=== PATIENT | female | born 1935 | race Caucasian/White ===

== ENCOUNTER 2021-02-21 12:10 | Inpatient (IN) | payer MEDICARE, OTHER ==
[~2021-02-21] VITALS: Ht 152.4 cm; Wt 65.0 kg
[~2021-02-21 12:10] MED LIST: ALBU6.7H9 IH; ALPR0.255 PO; ASPI81TA31 PO; BUDE10.2 IH; LACT10SO58 PO; LEVO100T PO; METO50TA7 PO; OLAN2.5T3 PO; POLY17PO4 PO; PRAM0.122 PO; SERT50TA PO; SIMV-46 PO; TRAM50TA PO; ZOLP10TA2 PO
[2021-02-21 12:45] VITALS: BP 151/63
[2021-02-21] MEDS ORDERED: METO-357 PO (13:08)
[2021-02-21] MEDS ORDERED: LEVO100T10 PO (13:08)
[2021-02-21] MEDS ORDERED: CARV25TA2 PO (13:08)
[2021-02-21] MEDS ORDERED: CLOP100P ALT NOSTRI (13:08)
[2021-02-21] MEDS ORDERED: CLON0.5T4 PO (13:08)
[2021-02-21] MEDS ORDERED: TRAM50TA2 PO (13:08)
[2021-02-21] MEDS ORDERED: DICL100G16 TP (13:08)
[2021-02-21] MEDS ORDERED: EMPA1TAB7 PO (13:08)
[2021-02-21] MEDS ORDERED: LIPA1CAP15 PO (13:08)
[2021-02-21] MEDS ORDERED: CLOP75TA33 PO (13:08)
[2021-02-21] MEDS ORDERED: FENO48TA6 PO (13:08)
[2021-02-21] MEDS ORDERED: SERT50TA PO (13:08)
[2021-02-21] MEDS ORDERED: ICOS1CAP2 (13:08)
[2021-02-21] MEDS ORDERED: FLUT1DIS28 IH (13:08)
[2021-02-21] MEDS ORDERED: QUET25TA PO (13:08)
[2021-02-21] MEDS ORDERED: TELM80TA9 PO (13:08)
[2021-02-21] MEDS: OXYCODONE HCL 5 MG TABLET PO PRN (14:11)
[2021-02-21 16:00] VITALS: BP 153/60
[2021-02-21] MEDS ORDERED: ALPRAZOLAM 0.25 MG TABLET PO PRN ×2 (19:00→20:00)
[2021-02-21] MEDS ORDERED: CLONAZEPAM 0.5 MG TABLET PO PRN (19:00)
[2021-02-21 20:00] VITALS: BP 131/46
[2021-02-21] MEDS ORDERED: ALBUTEROL SULFATE 2.5 MG/3 ML NEBU NEB PRN (20:15)
[2021-02-22] MEDS: OXYCODONE HCL 5 MG TABLET PO PRN ×2 (03:19→22:10)
[2021-02-22 04:00] VITALS: BP 152/64
--- NOTE | 2021-02-22 05:09 | NUR ---
Pt slept intermittently throughout the night. C/o pain in flank that is alleviated with Oxy. Denies SOB or chest pain. Pt very pleasant and able to make needs known. Call light within reach. Bed is locked and in lowest position, safety and comfort provided throughout shift. No other issues or concerns at this time, will endorse to day shift.
[2021-02-22] MEDS: LEVOTHYROXINE SODIUM 100 MCG TABLET PO SCH (06:05)
[2021-02-22 06:30] LABS: HEMATOCRIT 33.4 % (31.2-41.9); MEAN CORPUSCULAR HEMOGLOBIN 33.4 uug (24.7-32.8); MEAN CORPUSCULAR VOLUME 96.9 fL (75.5-95.3); PLATELET COUNT (AUTO) 171 K/uL (179-408)
[2021-02-22 06:35] LABS: BILIRUBIN,TOTAL 0.3 mg/dL (0.2-1.0); CREATININE 0.9 mg/dL (0.6-1.3); MAGNESIUM 1.3 mg/dL (1.8-2.4); PHOSPHOROUS 2.9 mg/dL (2.5-4.9); POTASSIUM 3.9 mmol/L (3.5-5.1); TOTAL PROTEIN, SERUM 6.2 g/dL (6.4-8.2)
[2021-02-22 08:00] VITALS: BP 151/65
[2021-02-22] MEDS ORDERED: Medication Not On Formulary EA (Lipase/Protease/Amylase (Creon Dr 36,000 Units Capsule) PO SCH (08:00)
[2021-02-22] MEDS: CLOPIDOGREL 75 MG TABLET PO SCH (08:41)
[2021-02-22] MEDS: CARVEDILOL 25 MG TABLET PO SCH ×2 (08:41→16:45)
[2021-02-22] MEDS: ASPIRIN 81 MG TAB.CHEW PO SCH (08:41)
[2021-02-22] MEDS: VALSARTAN 160 MG TABLET PO SCH (08:41)
[2021-02-22] MEDS: LIPASE/PROTEASE/AMYLASE 4200 UNITS CAPSULE.DR PO SCH ×3 (08:41→16:45)
[2021-02-22] MEDS: SERTRALINE HCL 100 MG TABLET PO SCH (08:42)
[2021-02-22] MEDS: FENOFIBRATE NANOCRYSTALLIZED 48 MG TABLET PO SCH (08:42)
[2021-02-22] MEDS ORDERED: SERTRALINE HCL 50 MG TABLET PO SCH (09:00)
[2021-02-22] MEDS ORDERED: METOPROLOL SUCCINATE XL 50 MG TAB.SR.24H PO SCH (09:00)
[2021-02-22] MEDS ORDERED: FLUTICASONE/SALMETEROL 250/50 INHALER IH SCH (09:00)
[2021-02-22] MEDS ORDERED: FLUTICASONE/VILANTEROL 1 EACH BLST.W.DEV INH SCH (09:00)
[2021-02-22] MEDS ORDERED: METFORMIN HCL PO SCH (09:00)
[2021-02-22] MEDS ORDERED: EMPAGLIFLOZIN PO SCH (09:00)
[2021-02-22] MEDS ORDERED: QUETIAPINE FUMARATE 25 MG TABLET PO SCH (09:00)
[2021-02-22] MEDS ORDERED: ALBUTEROL SULFATE 8 GM HFA.AER.AD IH SCH (09:00)
[2021-02-22] MEDS ORDERED: MAGNESIUM OXIDE 400 MG TABLET PO ONE ×2 (12:00→17:00)
[2021-02-22 14:09] VITALS: BP 123/53
[2021-02-22 20:23] VITALS: BP 179/71
[2021-02-22] MEDS: QUETIAPINE FUMARATE 25 MG TABLET PO SCH (20:51)
[2021-02-22] MEDS ORDERED: CLONIDINE HCL 0.1 MG TABLET PO PRN (21:15)
[2021-02-22] MEDS: ACETAMINOPHEN 325 MG TABLET PO PRN (21:31)
--- NOTE | 2021-02-22 21:35 | NUR ---
Patient awake in bed, c/o headache. Bp elevated. Called out to SARAH Travis for further orders. Received order for Clonidine 0.1mg po prn for sbp over 160. Patient given medication. Will continue to monitor and assess.
--- NOTE | 2021-02-22 23:30 | NUR ---
Patient asleep in bed. Rechecked bp 155/55. No c/o pain or discomfort. All needs attended, will continue to monitor and assess.
[2021-02-23] VITALS: BP 151/55
[2021-02-23 04:00] VITALS: BP 159/59
[2021-02-23] MEDS: LEVOTHYROXINE SODIUM 100 MCG TABLET PO SCH (06:03)
[2021-02-23 07:30] VITALS: BP 158/50
--- NOTE | 2021-02-23 07:30 | NUR ---
received change of shift report. pt resting in bed, a/o x3, pt has viridiana on left side of head open to air. pt on room air, no signs of distress, no reports of pain at this time. pt uses FWW, pt continent. bed low and locked, call light within reach, safety precautions in place, will continue to monitor.
[2021-02-23] MEDS: SERTRALINE HCL 100 MG TABLET PO SCH (08:35)
[2021-02-23] MEDS: ASPIRIN 81 MG TAB.CHEW PO SCH (08:35)
[2021-02-23] MEDS: CLOPIDOGREL 75 MG TABLET PO SCH (08:35)
[2021-02-23] MEDS: FENOFIBRATE NANOCRYSTALLIZED 48 MG TABLET PO SCH (08:36)
[2021-02-23] MEDS: VALSARTAN 160 MG TABLET PO SCH (08:36)
[2021-02-23] MEDS: CARVEDILOL 25 MG TABLET PO SCH ×2 (08:36→17:46)
[2021-02-23] MEDS: LIPASE/PROTEASE/AMYLASE 4200 UNITS CAPSULE.DR PO SCH ×3 (08:38→17:46)
--- NOTE | 2021-02-23 12:35 | NUR ---
Spoke with daughter about bringing her home medications to us. She stated she would bring them on Thursday and would explain to the mom that breo is a substitute for advair (which she takes at home). pharmacy notified
[2021-02-23] MEDS: FLUTICASONE/VILANTEROL 1 EACH BLST.W.DEV INH SCH ×2 (13:51→14:11)
[2021-02-23 16:00] VITALS: BP 145/66
--- NOTE | 2021-02-23 18:18 | NUR ---
pt resting in bed, a/ox3, pt on room air, no signs of distress , no reports of pain at this time. spoke with family, family notified to bring in home meds, ambulatory with FWW. will endorse to oncoming nurse.
[2021-02-23] MEDS: QUETIAPINE FUMARATE 25 MG TABLET PO SCH (20:00)
[2021-02-23 20:33] VITALS: BP 109/48
--- NOTE | 2021-02-23 20:47 | NUR ---
Received patient awake in bed. a/o x3. Tajik speaking but able to make needs known. Denies any pain or discomfort. No resp. distress noted. Vs wnl. Bed alarm on. Call light in reach. All needs attended. Will continue to monitor and assess.
[2021-02-24] MEDS: OXYCODONE HCL 5 MG TABLET PO PRN (02:26)
[2021-02-24] MEDS: ACETAMINOPHEN 325 MG TABLET PO PRN ×2 (02:34→20:24)
[2021-02-24 04:31] VITALS: BP 152/50
[2021-02-24] MEDS: LEVOTHYROXINE SODIUM 100 MCG TABLET PO SCH (06:24)
--- NOTE | 2021-02-24 06:47 | NUR ---
PATIENT AWAKE IN BED. SLEPT WELL THROUGHOUT THE NIGHT, DENIES ANY PAIN AT THIS TIME. BED ALARM ON. CALL LIGHT IN REACH. WILL CONTINUE TO MONITOR AND ASSESS.
--- NOTE | 2021-02-24 07:30 | NUR ---
received change of shift report. pt in bed resting, a/ox4 Jordanian speaking, understand some Belizean. pt on room air, no signs fo distress, no reports of pain at this time. pt ambulatory via FWW. pt continent with BRP. pt cooperative, bed low and locked, call light within reach, will continue with plan of care.
[2021-02-24] MEDS: ASPIRIN 81 MG TAB.CHEW PO SCH (08:54)
[2021-02-24] MEDS: CLOPIDOGREL 75 MG TABLET PO SCH (08:54)
[2021-02-24] MEDS: LIPASE/PROTEASE/AMYLASE 4200 UNITS CAPSULE.DR PO SCH ×3 (08:55→17:19)
[2021-02-24] MEDS: VALSARTAN 160 MG TABLET PO SCH (08:55)
[2021-02-24] MEDS: CARVEDILOL 25 MG TABLET PO SCH ×2 (08:55→17:20)
[2021-02-24] MEDS: SERTRALINE HCL 100 MG TABLET PO SCH (08:56)
[2021-02-24] MEDS: FENOFIBRATE NANOCRYSTALLIZED 48 MG TABLET PO SCH (08:56)
[2021-02-24] MEDS: FLUTICASONE/VILANTEROL 1 EACH BLST.W.DEV INH SCH (08:57)
[2021-02-24 09:54] VITALS: BP 147/59
--- NOTE | 2021-02-24 11:05 | NUR ---
son in law at bedside, spoke with him in regard to bringing the pt's home medication, son in law stated he will try to bring them in today.
--- NOTE | 2021-02-24 11:20 | NUR ---
son in law (POA), stated that he would like for the pt to receive the COVID-19 vaccine. he will also be bringing a copy of the POA paperwork.
[2021-02-24 15:52] VITALS: BP 132/54
--- NOTE | 2021-02-24 16:07 | NUR ---
INDIVIDUALIZED PLAN OF CARE
--- NOTE | 2021-02-24 18:35 | NUR ---
pt in bed resting, a/ox4, on room air, no signs of distress, no reports of pain at this time. pt improving with mobility per physical therapy. will endorse to oncoming nurse.
--- NOTE | 2021-02-24 19:15 | NUR ---
Received pt in bed, awake and verbally responsive, able to make needs known, pleasant. Denies any pain or discomfort. No signs of acute distress. Bed locked and in low position, bed alarm on. side rails up. will continue to monitor.
[2021-02-24] MEDS: QUETIAPINE FUMARATE 25 MG TABLET PO SCH (20:24)
[2021-02-24 20:26] VITALS: BP 125/47
[2021-02-25 04:37] VITALS: BP 129/48
[2021-02-25] MEDS: LEVOTHYROXINE SODIUM 100 MCG TABLET PO SCH (06:00)
--- NOTE | 2021-02-25 06:24 | NUR ---
Pt slept through the night. No s/s of acute distress. Tolerated medications well. Assisted to restroom as needed. Safety measures in place, call light within reach. All needs attended to and met.
[2021-02-25 07:30] VITALS: BP 122/53
[2021-02-25] MEDS: CARVEDILOL 25 MG TABLET PO SCH ×2 (08:48→17:42)
[2021-02-25] MEDS: CLOPIDOGREL 75 MG TABLET PO SCH (08:48)
[2021-02-25] MEDS: ASPIRIN 81 MG TAB.CHEW PO SCH (08:48)
[2021-02-25] MEDS: LIPASE/PROTEASE/AMYLASE 4200 UNITS CAPSULE.DR PO SCH ×3 (08:49→17:41)
[2021-02-25] MEDS: VALSARTAN 160 MG TABLET PO SCH (08:49)
[2021-02-25] MEDS: FENOFIBRATE NANOCRYSTALLIZED 48 MG TABLET PO SCH (08:49)
[2021-02-25] MEDS: SERTRALINE HCL 100 MG TABLET PO SCH (08:49)
[2021-02-25] MEDS: FLUTICASONE/VILANTEROL 1 EACH BLST.W.DEV INH SCH (08:54)
[2021-02-25 16:00] VITALS: BP 128/44
[2021-02-25 20:40] VITALS: BP 103/40
[2021-02-25] MEDS: ACETAMINOPHEN 325 MG TABLET PO PRN (21:12)
[2021-02-25] MEDS: QUETIAPINE FUMARATE 25 MG TABLET PO SCH (21:13)
[2021-02-26 04:37] VITALS: BP 123/44
[2021-02-26] MEDS: LEVOTHYROXINE SODIUM 100 MCG TABLET PO SCH (06:07)
--- NOTE | 2021-02-26 06:10 | NUR ---
Patient comfortable in bed stable v/s no signs of distress. Patient slept w/o complaint entire night and remained free of pain. Bed in low position and call light within reach.
[2021-02-26 06:24] LABS: HEMATOCRIT 36.2 % (31.2-41.9); MEAN CORPUSCULAR HEMOGLOBIN 32.5 uug (24.7-32.8); MEAN CORPUSCULAR VOLUME 97.7 fL (75.5-95.3); PLATELET COUNT (AUTO) 177 K/uL (179-408)
[2021-02-26 06:36] LABS: CREATININE 1.2 mg/dL (0.6-1.3); POTASSIUM 3.5 mmol/L (3.5-5.1)
[2021-02-26 07:30] VITALS: BP 106/42
--- NOTE | 2021-02-26 08:00 | NUR ---
RECEIVED PATIENT IN BED AWAKE ALERT AND AWARE WITH LANGUAGE BARRIER BUT SPEAKS ENOUGH [place] TO BE ABLE TO MAKE NEEDS KNOWN DENIES PAIN OR DISCOMFORTS AT THIS TIME ABLE TO AMBULATE TO AND FROM THE BATHROOM WITH ASSIST WITH THE FRONT WHEEL WALKER SHE IS CONTINENT AT THIS TIME PATIENT INSTRUCTED TO CALL FOR ASSISTANCE WHEN SHE HAS A NEED TO GET OUT OF BED TO PREVENT FALL CHECKED FREQUENTLY ON ROUNDS WILL CONTINUE TO OBSERVE.
[2021-02-26] MEDS: CLOPIDOGREL 75 MG TABLET PO SCH (08:25)
[2021-02-26] MEDS: SERTRALINE HCL 100 MG TABLET PO SCH (08:25)
[2021-02-26] MEDS: ASPIRIN 81 MG TAB.CHEW PO SCH (08:25)
[2021-02-26] MEDS: FLUTICASONE/VILANTEROL 1 EACH BLST.W.DEV INH SCH (08:26)
[2021-02-26] MEDS: LIPASE/PROTEASE/AMYLASE 4200 UNITS CAPSULE.DR PO SCH ×3 (08:26→17:02)
[2021-02-26] MEDS: FENOFIBRATE NANOCRYSTALLIZED 48 MG TABLET PO SCH (08:27)
[2021-02-26] MEDS: VALSARTAN 160 MG TABLET PO SCH (08:36)
[2021-02-26] MEDS: CARVEDILOL 25 MG TABLET PO SCH ×2 (08:36→17:02)
[2021-02-26 15:57] VITALS: BP 134/47
[2021-02-26 20:00] VITALS: BP 141/35
[2021-02-26] MEDS: QUETIAPINE FUMARATE 25 MG TABLET PO SCH (20:22)
--- NOTE | 2021-02-27 02:01 | NUR ---
received patient sleeping , arousable to name and light touch , denies distress
[2021-02-27 04:00] VITALS: BP 130/25
--- NOTE | 2021-02-27 06:00 | NUR ---
awake on room air , denies distress, viridiana intact on the head
[2021-02-27] MEDS: LEVOTHYROXINE SODIUM 100 MCG TABLET PO SCH (06:25)
[2021-02-27 07:53] VITALS: BP 139/43
[2021-02-27] MEDS: CLOPIDOGREL 75 MG TABLET PO SCH (08:32)
[2021-02-27] MEDS: ASPIRIN 81 MG TAB.CHEW PO SCH (08:32)
[2021-02-27] MEDS: SERTRALINE HCL 100 MG TABLET PO SCH (08:32)
[2021-02-27] MEDS: CARVEDILOL 25 MG TABLET PO SCH ×2 (08:32→17:39)
[2021-02-27] MEDS: LIPASE/PROTEASE/AMYLASE 4200 UNITS CAPSULE.DR PO SCH ×3 (08:33→17:34)
[2021-02-27] MEDS: VALSARTAN 160 MG TABLET PO SCH (08:33)
[2021-02-27] MEDS: FLUTICASONE/VILANTEROL 1 EACH BLST.W.DEV INH SCH (08:33)
[2021-02-27] MEDS: FENOFIBRATE NANOCRYSTALLIZED 48 MG TABLET PO SCH (08:34)
--- NOTE | 2021-02-27 09:00 | NUR ---
AWAKE ALERT IN ROOM REMAINS ON ROOM AIR WITH NO SHORTNESS OF BREATH AT THIS TIME ASSISTED WITH AMBULATING TO THE BATHROOM WITH THE FRONT WHEEL WALKER DENIES PAIN OR DISCOMFORTS LYNETTE ON HEAD IS INTACT WITH NO DRAINAGE CALL LIGHTS AND PERSONAL BELONGINGS ARE WITHIN EASY REACH AT THIS TIME PATIENT INSTRUCTED TO CALL FOR HELP WHEN EVER SHE NEEDS ONE TO PREVENT FALL NOT IN DISTRESS WILL CONTINUE TO OBSERVE.
--- NOTE | 2021-02-27 11:59 | NUR ---
CALLED AND SPOKE WITH PATIENTS SON IN LAW CAITIE RE BRINGING IN PATIENTS OWN MEDICATION NAMED SYNJARDLorena REQUESTED BY THE [facility] CAITIE STATED UNABLE TO FIND MEDICATION AT THIS TIME JAMAL NOTIFIED.
--- NOTE | 2021-02-27 13:34 | NUR ---
CONTINUE WITH PT/OT/SPEECH THERAPIES ORDERED AND TOLERATING WELL.
--- NOTE | 2021-02-27 13:48 | NUR ---
INTERDISCIPLINARY TEAM CONFERENCE
--- NOTE | 2021-02-27 14:13 | NUR ---
PER THE PHYSICAL THERAPIST WHILE HAVING THERAPY PATIENT HAD A BOWEL MOVEMENT AND AFTER THE BM PATIENT FELT DIZZY AND BLOOD PRESSURE AT THAT TIME IS 91/38 AND PATIENT ASSISTED SITTING ON THE BED BLOOD PRESSURE RECHECKED AND ITS 99/42 THEN WHILE LAYING HER BLOOD PRESSURE IS 96/43 PATIENT STATED FELT BETTER LOWER EXT ELEVATED WILL CONTINUE TO OBSERVE PATIENT.
[2021-02-27 15:10] VITALS: BP 102/34
--- NOTE | 2021-02-27 15:10 | NUR ---
BLOOD PRESSURE AT THIS TIME IS 102/34 PATIENT IS ASSYMPTOMATIC AT THIS TIME MADE COMFORTABLE AND WILL CONTINUE TO OBSERVE.
[2021-02-27] MEDS: ACETAMINOPHEN 325 MG TABLET PO PRN (16:39)
--- NOTE | 2021-02-27 17:39 | NUR ---
BLOOD PRESSURE RECHECKED AND ITS 148/53 HR IS 66 COREG GIVEN ORDERED PATIENT IS EATING DINNER ALERT ORIENTED WITH NO DISTRESS AT THIS TIME
[2021-02-27 20:00] VITALS: BP 118/50
[2021-02-27] MEDS: QUETIAPINE FUMARATE 25 MG TABLET PO SCH (20:28)
--- NOTE | 2021-02-27 20:55 | NUR ---
awake,[id number] complaints of pain . she just wanted to sleep.made comfortable.hs care rendered.
[2021-02-28 04:00] VITALS: BP 123/50
[2021-02-28] MEDS: LEVOTHYROXINE SODIUM 100 MCG TABLET PO SCH (06:14)
--- NOTE | 2021-02-28 07:24 | NUR ---
SLEPT MOST OF THE NITE, NO COMPLAINTS VITAL SIGNS STABLE.RESTING COMFORTABLY.
[2021-02-28 07:38] VITALS: BP 121/46
[2021-02-28] MEDS: ASPIRIN 81 MG TAB.CHEW PO SCH (08:13)
[2021-02-28] MEDS: FLUTICASONE/VILANTEROL 1 EACH BLST.W.DEV INH SCH (08:13)
[2021-02-28] MEDS: LIPASE/PROTEASE/AMYLASE 4200 UNITS CAPSULE.DR PO SCH ×3 (08:13→17:16)
[2021-02-28] MEDS: VALSARTAN 160 MG TABLET PO SCH ×2 (08:14→09:00)
[2021-02-28] MEDS: SERTRALINE HCL 100 MG TABLET PO SCH (08:14)
[2021-02-28] MEDS: CLOPIDOGREL 75 MG TABLET PO SCH (08:14)
[2021-02-28] MEDS: FENOFIBRATE NANOCRYSTALLIZED 48 MG TABLET PO SCH (08:14)
[2021-02-28] MEDS: CARVEDILOL 25 MG TABLET PO SCH ×2 (08:15→17:16)
[2021-02-28] MEDS ORDERED: IV NORMAL SALINE 500 ML IV ONE (11:45)
[2021-02-28 15:39] VITALS: BP 142/55
--- NOTE | 2021-02-28 16:52 | NUR ---
Per PT patient systolic blood pressure dropped to 80s and patient stated she felt dizzy as well, MD made aware, bolus IV hydration administered as ordered. effective.
[2021-02-28 17:10] VITALS: BP_SYST 138; BP_SYST 150; BP_SYST 151; BP_DIAS 37; BP_DIAS 45; BP_DIAS 49
[2021-02-28] MEDS: TRAMADOL HCL 50 MG TABLET PO PRN (17:16)
--- NOTE | 2021-02-28 19:13 | NUR ---
left message to son regarding patient home medication to call back, no response
[2021-02-28 20:00] VITALS: BP 105/53
[2021-02-28] MEDS: QUETIAPINE FUMARATE 25 MG TABLET PO SCH (20:49)
[2021-03-01 04:00] VITALS: BP 134/55
--- NOTE | 2021-03-01 05:50 | NUR ---
Shift End Report: VS stable. No complaint presented all night. All needs attended and met. No significant event reported. Continue current plan of care.
[2021-03-01] MEDS: LEVOTHYROXINE SODIUM 100 MCG TABLET PO SCH (06:07)
[2021-03-01 07:57] VITALS: BP 137/48
[2021-03-01] MEDS: LIPASE/PROTEASE/AMYLASE 4200 UNITS CAPSULE.DR PO SCH ×3 (08:12→17:24)
[2021-03-01] MEDS: ASPIRIN 81 MG TAB.CHEW PO SCH (08:15)
[2021-03-01] MEDS: VALSARTAN 160 MG TABLET PO SCH (08:15)
[2021-03-01] MEDS: SERTRALINE HCL 100 MG TABLET PO SCH (08:15)
[2021-03-01] MEDS: CLOPIDOGREL 75 MG TABLET PO SCH (08:15)
[2021-03-01] MEDS: CARVEDILOL 25 MG TABLET PO SCH ×2 (08:16→17:00)
[2021-03-01] MEDS: FLUTICASONE/VILANTEROL 1 EACH BLST.W.DEV INH SCH (08:16)
[2021-03-01] MEDS: FENOFIBRATE NANOCRYSTALLIZED 48 MG TABLET PO SCH (08:23)
[2021-03-01 16:00] VITALS: BP 119/38
[2021-03-01 20:00] VITALS: BP 154/62
[2021-03-01] MEDS: QUETIAPINE FUMARATE 25 MG TABLET PO SCH (20:22)
[2021-03-01] MEDS: OXYCODONE HCL 5 MG TABLET PO PRN (20:28)
--- NOTE | 2021-03-01 20:30 | NUR ---
RECEIVED PATIENT AWAKE IN BED. A/O X3. BULGARIAN SPEAKING BUT ABLE TO MAKE NEEDS KNOWN. ASSISTED PATIENT TO BATHROOM VIA FWW AND BACK TO BED. PATIENT C/O PAIN IN LOWER BACK AND PAIN WHEN SHE COUGHS. PATIENT GIVEN OXYIR 5MG PO AND TYLENOL 650MG PO PRN. VS WNL. NO RESP. DISTRESS NOTED. BED ALARM ON. CALL LIGHT IN REACH. ALL NEEDS ATTENDED, WILL CONTINUE TO MONITOR AND ASSESS.
--- NOTE | 2021-03-01 21:30 | NUR ---
PATIENT ASLEEP IN BED. NO RESP. DISTRESS NOTED. NO S/S OF ANY PAIN OR DISCOMFORT. BED ALARM ON. CALL LIGHT IN REACH. ALL NEEDS ATTENDED. WILL CONTINUE TO MONITOR AND ASSESS.
[2021-03-02 04:00] VITALS: BP 140/54
[2021-03-02] MEDS: LEVOTHYROXINE SODIUM 100 MCG TABLET PO SCH (06:11)
--- NOTE | 2021-03-02 06:39 | NUR ---
PATIENT AWAKE IN BED. SLEPT WELL. DENIES PAIN AT THIS TIME. BED ALARM ON. CALL LIGHT IN REACH. ALL NEEDS ATTENDED, WILL CONTINUE TO MONITOR AND ASSESS.
[2021-03-02 08:00] VITALS: BP 145/46
[2021-03-02] MEDS: LIPASE/PROTEASE/AMYLASE 4200 UNITS CAPSULE.DR PO SCH ×3 (08:35→17:02)
[2021-03-02] MEDS: VALSARTAN 160 MG TABLET PO SCH (08:36)
[2021-03-02] MEDS: ASPIRIN 81 MG TAB.CHEW PO SCH (08:36)
[2021-03-02] MEDS: SERTRALINE HCL 100 MG TABLET PO SCH (08:36)
[2021-03-02] MEDS: TRAMADOL HCL 50 MG TABLET PO PRN ×2 (08:36→17:11)
[2021-03-02] MEDS: CARVEDILOL 25 MG TABLET PO SCH ×2 (08:37→17:00)
[2021-03-02] MEDS: CLOPIDOGREL 75 MG TABLET PO SCH (08:37)
[2021-03-02] MEDS: FENOFIBRATE NANOCRYSTALLIZED 48 MG TABLET PO SCH (08:42)
[2021-03-02] MEDS: FLUTICASONE/VILANTEROL 1 EACH BLST.W.DEV INH SCH (10:59)
[2021-03-02 16:56] VITALS: BP 123/45
[2021-03-02] MEDS: ACETAMINOPHEN 325 MG TABLET PO PRN (17:11)
[2021-03-02 20:00] VITALS: BP 134/44
[2021-03-02] MEDS: QUETIAPINE FUMARATE 25 MG TABLET PO SCH (20:00)
--- NOTE | 2021-03-02 20:57 | NUR ---
Received pt resting in bed and reading the newspaper. AAO x3, Tristanian speaking, able to make needs known. No acute distress noted. Denies pain/ discomfort. Due med given as ordered. Safety measures maintained. Bed alarm on. Encouraged pt to use call light. Will continue to monitor.
[2021-03-03 04:00] VITALS: BP 132/41
[2021-03-03] MEDS: LEVOTHYROXINE SODIUM 100 MCG TABLET PO SCH (06:03)
[2021-03-03 08:00] VITALS: BP 133/49
[2021-03-03] MEDS: LIDOCAINE 5% PATCH TD SCH (09:16)
[2021-03-03] MEDS: VALSARTAN 160 MG TABLET PO SCH (09:17)
[2021-03-03] MEDS: CARVEDILOL 25 MG TABLET PO SCH ×2 (09:17→17:25)
[2021-03-03] MEDS: CLOPIDOGREL 75 MG TABLET PO SCH (09:17)
[2021-03-03] MEDS: ASPIRIN 81 MG TAB.CHEW PO SCH (09:17)
[2021-03-03] MEDS: FENOFIBRATE NANOCRYSTALLIZED 48 MG TABLET PO SCH (09:18)
[2021-03-03] MEDS: SERTRALINE HCL 100 MG TABLET PO SCH (09:18)
[2021-03-03] MEDS: LIPASE/PROTEASE/AMYLASE 4200 UNITS CAPSULE.DR PO SCH ×3 (09:18→17:18)
[2021-03-03] MEDS: FLUTICASONE/VILANTEROL 1 EACH BLST.W.DEV INH SCH (09:21)
--- NOTE | 2021-03-03 14:27 | NUR ---
Patient in bed, alert , Lao speaking, cooperative upon assessment. Denies of any pain, call light within reach. Bed alam functioning well. All due meds given per MD order . Patient on room air saturating at 95% Assisted to the bathroom with a walker and wearing her back brace . Will continue to monitor.
[2021-03-03 15:59] VITALS: BP 129/36
[2021-03-03 20:13] VITALS: BP 105/43
[2021-03-03] MEDS: QUETIAPINE FUMARATE 25 MG TABLET PO SCH (20:13)
--- NOTE | 2021-03-03 20:27 | NUR ---
Received pt with bed alarm ongoing, getting out of bed without calling for assistance. Assisted pt to the bathroom using walker, unsteady gait. AAO x3, Maldivian speaking, able to make needs known. No acute distress noted. Denies pain/ discomfort. Due med given as ordered. Pt non compliant with the use of call light, Risks and benefits explained. Pt again got out of bed without using call light. Encouraged pt multiple times to use call light. Bed alarm on. Safety measures maintained. Call light and personal items within reach. Will continue to monitor.
[2021-03-04 04:50] VITALS: BP 106/35
[2021-03-04] MEDS: LEVOTHYROXINE SODIUM 100 MCG TABLET PO SCH (06:00)
[2021-03-04 08:00] VITALS: BP 121/46
[2021-03-04 08:06] VITALS: BP 146/66
[2021-03-04] MEDS: CLOPIDOGREL 75 MG TABLET PO SCH (09:06)
[2021-03-04] MEDS: LIPASE/PROTEASE/AMYLASE 4200 UNITS CAPSULE.DR PO SCH ×3 (09:06→17:28)
[2021-03-04] MEDS: ASPIRIN 81 MG TAB.CHEW PO SCH (09:06)
[2021-03-04] MEDS: SERTRALINE HCL 100 MG TABLET PO SCH (09:06)
[2021-03-04] MEDS: FENOFIBRATE NANOCRYSTALLIZED 48 MG TABLET PO SCH (09:07)
[2021-03-04] MEDS: VALSARTAN 160 MG TABLET PO SCH (09:07)
[2021-03-04] MEDS: CARVEDILOL 25 MG TABLET PO SCH ×2 (09:08→17:00)
[2021-03-04] MEDS: LIDOCAINE 5% PATCH TD SCH (09:08)
[2021-03-04] MEDS: FLUTICASONE/VILANTEROL 1 EACH BLST.W.DEV INH SCH (09:10)
--- NOTE | 2021-03-04 09:15 | NUR ---
AWAKE ALERT AWARE SITTING UP ON THE CHAIR EATING HER BREAKFAST COMPLIANT WITH MEDICATIONS AND CARE WAS SEEN BY THE PHYSICAL THERAPIST FOR THERAPEUTIC EXERCISES AND PER THE THERAPIST HER ENDURANCE WAS BETTER.CALL LIGHTS AND PERSONAL BELONGINGS ARE WITHIN EASY REACH WILL CONTINUE TO OBSERVE AND PROVIDE COMFORT
[2021-03-04 15:03] LABS: CARBON DIOXIDE 23 mmol/L (21-32); CHLORIDE 107 mmol/L (98-107); CREATININE 1.5 mg/dL (0.6-1.3); GLUCOSE 142 mg/dL (74-106); POTASSIUM 4.7 mmol/L (3.5-5.1); UREA NITROGEN, BLOOD 32 mg/dL (7-18)
[2021-03-04] MEDS: TRAMADOL HCL 50 MG TABLET PO PRN (15:51)
--- NOTE | 2021-03-04 15:52 | NUR ---
C/O GERERALISED PAIN MEDICATED WITH ULTRAM ORDERED MADE COMFORTABLE WILL OBSERVE.
[2021-03-04 16:37] VITALS: BP 105/40
--- NOTE | 2021-03-04 16:40 | NUR ---
CALLED AND SPOKE WITH DR BLACK AND NOTIFIED HIM OF MY CONVERSATION WITH THE PATIEN WANTED ME TO CHECK PATIENT ORTHOSTATIC BLOOD PRESSURE AND CALL HIM BACK SEE LOG FORM FOR THE RESULTS.
--- NOTE | 2021-03-04 16:45 | NUR ---
CALL RECEIVED FROM PATIENTS DAUGHTER STATED THAT PATIENT HAD CALLED HER TO REPORT THAT HER BLOOD WAS TAKEN AND SHE DOES NOT WANT BLOOD DRAW OFTEN STATED THAT IT MAKES HER FEEL DIZZY EXPLAINED TO PATIENTS DAUGHTER THAT THE LAST TIME BLOOD WAS CHECKED WAS ON THE February AND THAT SHE HAD COMPLAINED OF PAIN EARLIER WHICH I GAVE HER PAIN MEDICATIONS BUT PATIENTS DAUGHTER WAS VERY ABRUPT STATED THAT WE DO NOT CARE FOR THE ELDERLY WOMAN COMPARED THE PATIENT TO THIS WRITERS MOTHER STATED WHAT WOULD I DO IF THIS WAS MY MOTHER STATED WANTS THE DOCTOR TO CALL HER AND THEN HUNG UP WHILE I WAS STILL ATTEMPTING TO EXPLAIN TO HER WHAT WAS GOING ON. Addendum: 03/04/21 at 1811 by LARRY WHITNEY RN CALL WAS RECEIVED FROM PATIENTS DAUGHTER AT [id number]
--- NOTE | 2021-03-04 17:00 | NUR ---
CALL RECEIVED FROM DR BLACK STATED TO START PATIENT IN IVF BASDE ON HER BUN/CR AND FEELING OF DIZZINESS THINKS SHE MIGHT BE DEHYDRATED AND NOTED.
[2021-03-04] MEDS ORDERED: IV NORMAL SALINE 500 ML IV ONE (17:15)
--- NOTE | 2021-03-04 17:30 | NUR ---
HEPLOCK INSERTED TO HER RIGHT WRIST WITH ONE ATTEMPT GAUGE 20 AND NS BOLUS STARTED ORDERED WILL OBSERVE.
[2021-03-04 18:17] VITALS: BP_SYST 109; BP_SYST 92; BP_SYST 98; BP_DIAS 46; BP_DIAS 48; BP_DIAS 55
[2021-03-04] MEDS: IV NS 1000 ML 1,000 ML IV PRN (18:49)
[2021-03-04 20:00] VITALS: BP 118/38
[2021-03-04] MEDS: QUETIAPINE FUMARATE 25 MG TABLET PO SCH (20:24)
[2021-03-05 04:00] VITALS: BP 116/36
[2021-03-05] MEDS: LEVOTHYROXINE SODIUM 100 MCG TABLET PO SCH (06:15)
[2021-03-05] MEDS: IV NS 1000 ML 1,000 ML IV PRN ×2 (06:22→19:45)
--- NOTE | 2021-03-05 06:28 | NUR ---
Shift End Report: Vs stable. Slept good. Continuos IVF as ordered for hydration, No s/s of IV site infiltration. All needs attended. No complaint presented all night. No significant event reported. Continue current rehab plan of care.
--- NOTE | 2021-03-05 07:26 | NUR ---
RECEIVED PATIENT IN BED WITH EYES CLOSED EASILY AROUSABLE ON ROUNDS ON ROOM AIR WITH NO S/S OF SHORTNESS OF BREATH AT THIS TIME REMAIN ON IVF ORDERED WITH NO S/S OF INFILTERATION ON SITE CALL LIGHTS AND PERSONAL BELONGINGS ARE WITHIN EASY REACH MADE COMFORTABLE WILL CONTINUE TO OBSERVE.
[2021-03-05 07:51] VITALS: BP 115/45
[2021-03-05] MEDS: LIPASE/PROTEASE/AMYLASE 4200 UNITS CAPSULE.DR PO SCH ×3 (08:45→17:29)
[2021-03-05] MEDS: ASPIRIN 81 MG TAB.CHEW PO SCH (08:45)
[2021-03-05] MEDS: CLOPIDOGREL 75 MG TABLET PO SCH (08:45)
[2021-03-05] MEDS: SERTRALINE HCL 100 MG TABLET PO SCH (08:45)
[2021-03-05] MEDS: CARVEDILOL 12.5 MG TABLET PO SCH ×2 (08:46→17:32)
[2021-03-05] MEDS: LIDOCAINE 5% PATCH TD SCH (08:47)
[2021-03-05] MEDS: FLUTICASONE/VILANTEROL 1 EACH BLST.W.DEV INH SCH (08:49)
[2021-03-05] MEDS ORDERED: FENOFIBRATE NANOCRYSTALLIZED 48 MG TABLET PO SCH (09:00)
[2021-03-05] MEDS: VALSARTAN 160 MG TABLET PO SCH (09:00)
[2021-03-05] MEDS ORDERED: CARVEDILOL 25 MG TABLET PO SCH (09:00)
--- NOTE | 2021-03-05 09:03 | NUR ---
BLOOD PRESSURE AT THIS TIME IS 115/45 AND PATIENT IS ALSO ON COREG AND HAD HYPOTENSIVE EPISODE YESTERDAY SO DIOVAN NOT GIVEN AT THIS TIME TO ENSURE THAT HIS BLOOD PRESSURE DID NOT DROP TOO LOW.
--- NOTE | 2021-03-05 14:59 | NUR ---
IV SITE RIGHT FOREARM LEAKING REINSERTED TO HER LEFT FOREARM WITH TWO ATTEMPT WRAPPED WITH KIRLIX AND CONTINUED HIS IVF ORDERED.
[2021-03-05 15:54] VITALS: BP 133/45
--- NOTE | 2021-03-05 17:33 | NUR ---
COREG HELD EVEN THOUGH HER BLOOD PRESSURE IS 133/45 BLOOD PRESSURE HAS FLUCTUATED AND SHE HAS BEEN HYPOTENSIVE THROUGHOUT THE DAY IT WAS 98/51 ABOUT 1500 TODAY WILL CONTINUE TO OBSERVE HER BLOOD PRESSURE AND WILL NOTIFY THE DOCTOR RE REVIEWING HER HYPERTENSION DRUGS
--- NOTE | 2021-03-05 20:00 | NUR ---
patient received awake with the same if on.with call light within reach
[2021-03-05 20:03] VITALS: BP 149/41
[2021-03-05] MEDS: QUETIAPINE FUMARATE 25 MG TABLET PO SCH (20:29)
--- NOTE | 2021-03-06 02:59 | NUR ---
asleep. with no untoward complaints,the same ivf on.
[2021-03-06 04:35] VITALS: BP 158/57
[2021-03-06] MEDS: LEVOTHYROXINE SODIUM 100 MCG TABLET PO SCH (06:05)
[2021-03-06] MEDS: TRAMADOL HCL 50 MG TABLET PO PRN (06:07)
--- NOTE | 2021-03-06 06:20 | NUR ---
awake.ambulated to the bathroom with assist with a walker and voided freely. assisted back to bed, ultram dose given for pain to the left leg. the same ivf on
--- NOTE | 2021-03-06 07:16 | NUR ---
sleeping with no further complaints
--- NOTE | 2021-03-06 07:30 | NUR ---
Received change of shift report, pt in bed sleeping, easily arousable, a/ox4, on room air, no signs of distress noted, no reports of pain at this time. pt able to ambulate with assist, call light within reach, IV on the left FA 22g infusing NS at 80cc, patent and intact. bed low and locked, fall precautions in place, will continue with plan of care.
[2021-03-06 07:37] LABS: HEMATOCRIT 36.1 % (31.2-41.9); MEAN CORPUSCULAR VOLUME 98.9 fL (75.5-95.3); PLATELET COUNT (AUTO) 178 K/uL (179-408)
[2021-03-06 08:00] VITALS: BP 128/51
[2021-03-06 08:47] LABS: BILIRUBIN,TOTAL 0.2 mg/dL (0.2-1.0); MAGNESIUM 1.5 mg/dL (1.8-2.4); PHOSPHOROUS 2.8 mg/dL (2.5-4.9); POTASSIUM 4.7 mmol/L (3.5-5.1); TOTAL PROTEIN, SERUM 6.4 g/dL (6.4-8.2)
[2021-03-06] MEDS: CLOPIDOGREL 75 MG TABLET PO SCH (08:48)
[2021-03-06] MEDS: LIDOCAINE 5% PATCH TD SCH (08:49)
[2021-03-06] MEDS: VALSARTAN 160 MG TABLET PO SCH (08:49)
[2021-03-06] MEDS: CARVEDILOL 12.5 MG TABLET PO SCH ×2 (08:49→18:42)
[2021-03-06] MEDS: ASPIRIN 81 MG TAB.CHEW PO SCH (08:49)
[2021-03-06] MEDS: SERTRALINE HCL 100 MG TABLET PO SCH (08:49)
[2021-03-06] MEDS: FLUTICASONE/VILANTEROL 1 EACH BLST.W.DEV INH SCH (08:50)
[2021-03-06] MEDS: LIPASE/PROTEASE/AMYLASE 4200 UNITS CAPSULE.DR PO SCH ×3 (08:50→18:42)
[2021-03-06] MEDS: IV NS 1000 ML 1,000 ML IV PRN (08:53)
[2021-03-06 10:52] LABS: THYROID STIMULATING HORMONE 0.04 mIU/mL (0.358-3.740)
[2021-03-06] MEDS: MAGNESIUM SULFATE/D5W 100 ML IV SCH ×2 (13:20→14:12)
--- NOTE | 2021-03-06 15:01 | NUR ---
INTERDISCIPLINARY TEAM CONFERENCE
[2021-03-06] MEDS: ACETAMINOPHEN 325 MG TABLET PO PRN (15:50)
[2021-03-06 16:41] VITALS: BP 127/55
--- NOTE | 2021-03-06 19:45 | NUR ---
Received pt in bed, awake and verbally responsive, very pleasant. No s/s of respiratory distress, denies any pain or discomfort. IVF infusing well. Safety measures initiated, call light within reach, will continue to monitor.
[2021-03-06 20:00] VITALS: BP 159/51
[2021-03-06] MEDS: QUETIAPINE FUMARATE 25 MG TABLET PO SCH (20:39)
[2021-03-07 04:00] VITALS: BP 139/49
[2021-03-07] MEDS: IV NS 1000 ML 1,000 ML IV PRN (04:15)
[2021-03-07] MEDS: LEVOTHYROXINE SODIUM 100 MCG TABLET PO SCH (06:15)
--- NOTE | 2021-03-07 06:20 | NUR ---
Slept through the night, no acute distress noted. Tolerated medications well. IVF infusing on L AC at 80cc/hr. Safety measures maintained. all needs attended to and met.
--- NOTE | 2021-03-07 07:30 | NUR ---
received change of shift report. pt resting in bed, a/ox4, on room air, no signs of distress, reports of pain with movement at this time. pt ambulatory with walker, walker at bedside, call light within reach, safety precautions in place. IV in the left AC 20g infusing NS at 80ml/hr, will continue with plan of care.
[2021-03-07 08:00] VITALS: BP 156/60
[2021-03-07] MEDS: ASPIRIN 81 MG TAB.CHEW PO SCH (08:49)
[2021-03-07] MEDS: SERTRALINE HCL 100 MG TABLET PO SCH (08:49)
[2021-03-07] MEDS: LIPASE/PROTEASE/AMYLASE 4200 UNITS CAPSULE.DR PO SCH ×2 (08:50→12:16)
[2021-03-07] MEDS: LIDOCAINE 5% PATCH TD SCH (08:50)
[2021-03-07] MEDS: CLOPIDOGREL 75 MG TABLET PO SCH (08:50)
[2021-03-07] MEDS: FLUTICASONE/VILANTEROL 1 EACH BLST.W.DEV INH SCH (08:51)
[2021-03-07] MEDS: VALSARTAN 160 MG TABLET PO SCH (08:57)
[2021-03-07 08:58] VITALS: BP 156/60
[2021-03-07] MEDS: CARVEDILOL 12.5 MG TABLET PO SCH (08:58)
--- NOTE | 2021-03-07 10:30 | NUR ---
pt refused to work with physical therapy. physical therapist will try again later, see PT notes.
--- NOTE | 2021-03-07 14:45 | NUR ---
pt discharged home via [facility]. pt left home with home health, pt had all belongings, and paperwork as well as prescriptions in hand. education given regarding follow up instructions. pt cooperative, ambulatory with walker, all medications given as ordered. pt on room air, no pain reported, no signs of distress noted. pt vitals WNL, son in law made aware of pt going and will be waiting for her arrival.
[2021-03-07 15:33] LABS: MAGNESIUM 1.8 mg/dL (1.8-2.4); POTASSIUM 4.4 mmol/L (3.5-5.1)
== END 2021-03-07 15:10 | disposition home health service (06) | DRG 559 ==
PROVIDERS: ADMIT Physical Medicine & Rehabilitation Pain Medicine; ATTEND Physical Medicine & Rehabilitation Pain Medicine
DX: M48.55XD Collapsed vertebra, not elsewhere classified, thoracolumbar region, subsequent encounter for fracture with routine healing (principal); N17.0 Acute kidney failure with tubular necrosis; J84.9 Interstitial pulmonary disease, unspecified; S01.01XD Laceration without foreign body of scalp, subsequent encounter; E03.9 Hypothyroidism, unspecified; E66.9 Obesity, unspecified; I10 Essential (primary) hypertension; M19.90 Unspecified osteoarthritis, unspecified site; R29.6 Repeated falls; Z91.81 History of falling; W19.XXXD Unspecified fall, subsequent encounter; Z90.5 Acquired absence of kidney; G89.29 Other chronic pain; M54.5 Low back pain; M81.0 Age-related osteoporosis without current pathological fracture; E86.1 Hypovolemia; Z88.0 Allergy status to penicillin; M85.80 Other specified disorders of bone density and structure, unspecified site; E11.65 Type 2 diabetes mellitus with hyperglycemia; R53.1 Weakness
CPT/HCPCS: 36415; 71101; 82652; 83735; 84100; 84443; 85025; A4663; J3475; J7030; J7040